=== PATIENT | female | born 1980 | race Caucasian/White ===

== ENCOUNTER → 2016-08-18 | Day surgery (SDC) | payer OTHER | LOC: RAD 13:23 | PROVIDERS: ATTEND Orthopaedic Surgery | PROC: BP08ZZZ Plain Radiography of Right Shoulder (ICD-10-PCS; principal; 2016-08-18) | DX: M25.511 Pain in right shoulder (principal) | CPT/HCPCS: 73222; 73040; 77002; A9576 ==

== ENCOUNTER → 2016-08-30 | Outpatient (CLI) | payer OTHER ==
--- NOTE | 2016-08-31 10:35 | RADIOLOGY REPORT (SQ) ---
EXAM DESCRIPTION: MRI CHEST WITHOUT COMPLETED DATE/TIME: 08/30/2016 4:32 pm REASON FOR STUDY: SUBLUXATION SC JOINT COMPARISON: MRI right shoulder 08/18/2016 TECHNIQUE: Non contrasted MRI of the sternoclavicular joints was performed. Pulse sequences include T1, T2, and STIR images in the axial and coronal orientations, sagittal STIR and T1 weighted images. Area of coverage includes the medial half of the right and left clavicle and sternoclavicular joint s. Patient has sternoclavicular joint and right shoulder pain for 4 months without history of trauma. LIMITATIONS: None. FINDINGS: Normal marrow signal. No abnormalities worrisome for occult fracture or marrow replacemen t process with aggressive lytic or blastic lesions. The right and left sternoclavicular joints are symmetric, no significant joint space narrowing, synov ial space fluid, or bulky bony spurring. Lower neck/upper anterior chest soft tissues are unremarkable. No adenopathy. IMPRESSION: Unremarkable noncontrast MRI of the manubrium sternum and sternoclavicular joints, unrem arkable right clavicle medial half. TECHNICAL DOCUMENTATION: JOB ID: [id number] [employer]- All Rights Reserved
== END ==
LOC: RAD 15:18
PROVIDERS: ATTEND Orthopaedic Surgery
DX: S43.21 Anterior subluxation and dislocation of sternoclavicular joint (principal); X58.XXXS Exposure to other specified factors, sequela
CPT/HCPCS: 71550